=== PATIENT | female | born 1980 | race Two or more races ===

== ENCOUNTER 2016-09-11 22:36 | Emergency (ER) | payer OTHER ==
[~2016-09-11] VITALS: Ht 160 cm; Wt 49.0 kg
[2016-09-11 22:39] VITALS: Ht 160 cm; Wt 49.0 kg
[2016-09-12] MEDS ORDERED: ACETAMINOPHEN 500 MG TAB PO STA (00:12)
--- NOTE | 2016-09-12 00:23 | ERD ---
ER Documentation Chief Complaint Date/Time DATE: 09/12/16 TIME: 00:22 Chief Complaint cough x 2 days, fever today HPI 36-year-old female comes in with cough, sore throat, right upper back pain 2 days with fever 1 day. She reports a dry cough, she took some Mucinex earlier today. No hemoptysis, no voice changes or drooling. Patient complains of pleuritic right upper posterior back pain with coughing. She states that she traveled to [place] 3 weeks ago, she denies any vomiting, diarrhea associated. She denies any history of mosquito bites. 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 ROS All systems reviewed and are negative except as per history of present illness. Medications Home Meds Active Scripts Azithromycin* (Zithromax*) 500 Mg Tablet, 500 MG PO DAILY for 7 Days, TAB Prov:GRISELDA MENCHACA PA-C 09/12/16 Allergies Allergies: Coded Allergies: No Known Drug Allergies (Verified Allergy, Unknown, 08/10/14) PMhx/Soc History of Surgery: Yes (cyst removal from bilateral breasts) Hx Alcohol Use: No Hx Substance Use: No Hx Tobacco Use: No Smoking Status: Never smoker Physical Exam Vitals Vital Signs Date Time Temp Pulse Resp B/P Pulse Ox O2 Delivery O2 Flow Rate FiO2 09/12/16 02:35 98.7 92 16 118/56 98 Room Air 09/11/16 22:39 102.3 129 20 123/59 98 Physical Exam General: Well-developed, well-nourished. The patient appears in no acute distress. HEENT: Head is normocephalic, atraumatic. No scleral icterus. Pupils are equal , round, and reactive. Oral mucous membranes are moist. No pharyngeal erythema. Oropharynx, there is bilateral exudate, tonsillar swelling. Uvula midline Neck: Supple. Nontender. Positive cervical anterior lymphadenopathy Lungs: Clear to auscultation. Normal air movement. Heart: Regular rate and rhythm. S1 and S2 are normal. No murmurs, gallops, or rubs. Abdomen: Soft, nontender, nondistended. Bowel sounds are normoactive. Extremities: No clubbing or cyanosis. Normal pulses. Moving extremities x 4. No weakness. Neurologic: Alert and oriented 3. No focal deficits. Skin: Normal turgor. No rash or lesions. Results 24 hrs Current Medications Medications (Trade) Dose Ordered Sig/Steve Route PRN Reason Start Time Stop Time Status Last Admin Dose Admin Acetaminophen (Tylenol Tab) 1,000 mg ONCE STAT PO 09/12/16 00:12 09/12/16 00:13 DC 09/12/16 00:30 Ibuprofen (Motrin) 400 mg ONCE ONCE PO 09/12/16 00:30 09/12/16 00:31 DC 09/12/16 00:30 Ceftriaxone Sodium (Rocephin) 1 gm ONCE ONCE IM 09/12/16 01:30 09/12/16 01:31 DC 09/12/16 01:29 Lidocaine (Xylocaine 1% (Mdv) 20 ml) 2 ml ONCE ONCE IM 09/12/16 01:30 09/12/16 01:31 DC 09/12/16 01:29 PROCEDURE: XR Chest. CLINICAL INDICATION: Cough and high fever. TECHNIQUE: Single frontal view of the chest was obtained COMPARISON: None FINDINGS: The heart and mediastinum are within normal limits. Mild right lung base atelectasis versus airspace disease. Lungs are otherwise clear. There is no pleural effusion or pneumothorax. IMPRESSION: Mild right lung base pneumonia. RPTAT: [facility] Physician Sue Date Time Electronically viewed and signed by Physician Sue on 09/12/2016 01:07 RS/ CC: GRISELDA MENCHACA PA-C Procedures/MDM ED course: Patient was given Tylenol as well as Motrin. She was given Rocephin 1 g IM. MDM: 36-year-old female comes in with cough, sore throat, runny nose and fever for 2 days, patient has exudative material on her tonsils, and chest x-ray shows evidence of right middle lobe pneumonia. She was febrile and tachycardic , was medicated with Tylenol and Motrin and vitals improved. She does not show any signs of respiratory distress and no evidence of hypoxia present. Patient appears to present with community-acquired pneumonia given her sick contacts recently, she works with children. There are no signs of any airway obstructive process, and she is nontoxic appearing, given this I feel that the patient is appropriate to be discharged on oral antibiotics. She is to return if fever persists despite antibiotic treatment. Departure Diagnosis: Primary Impression: Pneumonia Condition: GRISELDA Perez PA-C Sep 12, 2016 00:23
[2016-09-12] MEDS ORDERED: IBUPROFEN 200 MG TAB PO ONE (00:30)
--- NOTE | 2016-09-12 01:07 | RADRPT ---
PROCEDURE: XR Chest. CLINICAL INDICATION: Cough and high fever. TECHNIQUE: Single frontal view of the chest was obtained COMPARISON: None FINDINGS: The heart and mediastinum are within normal limits. Mild right lung base atelectasis versus airspace disease. Lungs are otherwise clear. There is no pleural effusion or pneumothorax. IMPRESSION: Mild right lung base pneumonia. RPTAT: [facility] Physician Sue Date Time Electronically viewed and signed by Clinton Sosa Physician on 09/12/2016 01:07 RS/
[2016-09-12] MEDS ORDERED: AZIT250T94 PO (01:23)
[2016-09-12] MEDS ORDERED: AZIT500T3 PO (01:23)
[2016-09-12] MEDS ORDERED: LIDOCAINE 1% (MDV) 20 ML INJ IM ONE (01:30)
[2016-09-12] MEDS ORDERED: CEFTRIAXONE 1 GM INJ IM ONE (01:30)
[2016-09-12 02:35] VITALS: BP 118/56; PULSE 92; RESP 16; TEMP 98.7
== END 2016-09-12 02:37 | disposition home or self-care (01) ==
LOC: FTE 22:36
DX: J18.9 Pneumonia, unspecified organism (principal)
CPT/HCPCS: 71010; 99283; J0696